=== PATIENT | female | born 1940 | race Caucasian/White ===

== ENCOUNTER 2017-09-03 13:38 | Outpatient (CLI) | payer MEDICARE, BC | END 2017-09-03 13:39 | disposition home or self-care (01) | LOC: BICRAD 13:38 | PROVIDERS: ATTEND Podiatrist | DX: M25.572 Pain in left ankle and joints of left foot (principal); M79.89 Other specified soft tissue disorders ==

== ENCOUNTER 2023-03-12 14:31 | Outpatient (CLI) | payer MEDICARE, BC ==
[2023-03-12] MEDS ORDERED: Magnevist 469MG/ML 20 ML VIAL ONE (15:43)
== END 2023-03-12 14:32 | disposition home or self-care (01) ==
LOC: BICMRI 14:31 → MRI 14:32
PROVIDERS: ATTEND Psychiatry & Neurology Neurology
DX: R51.9 Headache, unspecified (principal); D32.0 Benign neoplasm of cerebral meninges; I67.89 Other cerebrovascular disease
CPT/HCPCS: 70553; A9579